=== PATIENT | male | born 1965 | race Caucasian/White ===

== ENCOUNTER 2023-01-09 08:20 | Day surgery (SDC) | payer OTHER ==
[~2023-01-09] VITALS: Ht 162.6 cm; Wt 62.4 kg
[~2023-01-09 08:20] MED LIST: NS 1,000 ML IV ONE
[2023-01-09] MEDS ORDERED: LIDOCAINE 2% 100MG/5ML SDV (FOR ANES.) As Ordered ONE (09:38)
[2023-01-09] MEDS ORDERED: propofoL 200 MG/20 ML VIAL As Ordered ONE (09:38)
[2023-01-09] MEDS ORDERED: fentaNYL 100 MCG/2 ML INJECTION As Ordered ONE (09:38)
[2023-01-09 10:55] VITALS: BP 116/71
== END 2023-01-09 11:13 | disposition home or self-care (01) ==
LOC: M OPP 08:20
PROVIDERS: ATTEND Internal Medicine Gastroenterology
DX: Z12.11 Encounter for screening for malignant neoplasm of colon (principal); Z86.010 Personal history of colon polyps; K64.4 Residual hemorrhoidal skin tags; K64.8 Other hemorrhoids; K57.30 Diverticulosis of large intestine without perforation or abscess without bleeding; K22.70 Barrett's esophagus without dysplasia; K29.70 Gastritis, unspecified, without bleeding; Z88.0 Allergy status to penicillin
CPT/HCPCS: 43239; 45378; 88305; J3010

== ENCOUNTER → 2024-05-27 | Outpatient (CLI) | payer OTHER | LOC: M SLEEP 20:00 | PROVIDERS: ATTEND Internal Medicine Pulmonary Disease | DX: R06.83 Snoring (principal) ==